=== PATIENT | female | born 1950 | race Asian ===

== ENCOUNTER 2021-07-05 03:22 | Emergency (ER) | payer MEDICARE ==
[~2021-07-05] VITALS: Ht 154.9 cm; Wt 63.5 kg
[2021-07-05 03:22] VITALS: BP 160/62
[2021-07-05] MEDS ORDERED: MECLIZINE HCL 25 MG TAB PO ONE ×2 (06:00→08:30)
[2021-07-05] MEDS ORDERED: SODIUM CHLORIDE 0.9% 1,000 ML IV ONE (08:30)
== END 2021-07-05 13:03 | disposition left against medical advice (07) ==
LOC: ER 03:22 → EDBD 03:22 → ER 13:03
DX: H81.10 Benign paroxysmal vertigo, unspecified ear (principal); E11.65 Type 2 diabetes mellitus with hyperglycemia; N39.0 Urinary tract infection, site not specified; E78.5 Hyperlipidemia, unspecified; I10 Essential (primary) hypertension
CPT/HCPCS: 70450; 71046; 93005; 96360; 96361; 99284; J7030; J8597